=== PATIENT | male | born 1995 | race Caucasian/White ===

== ENCOUNTER 2017-04-17 16:15 | Emergency (ER) | payer BC ==
[~2017-04-17] VITALS: Ht 180.3 cm; Wt 136.0 kg
[2017-04-17] MEDS ORDERED: IBUPROFEN 800 MG TABLET PO ONE (17:00)
[2017-04-17] MEDS ORDERED: HYDROCODONE/ACETAMINOPHEN 5-325 MG TABLET PO ONE (18:30)
[2017-04-17 19:07] VITALS: BP 135/77
== END 2017-04-17 19:28 | disposition home or self-care (01) ==
LOC: EMS 16:17
DX: S82.301A Unspecified fracture of lower end of right tibia, initial encounter for closed fracture (principal); R03.0 Elevated blood-pressure reading, without diagnosis of hypertension; F17.210 Nicotine dependence, cigarettes, uncomplicated; W01.0XXA Fall on same level from slipping, tripping and stumbling without subsequent striking against object, initial encounter; Y93.89 Activity, other specified; Y92.89 Other specified places as the place of occurrence of the external cause; Y99.8 Other external cause status
CPT/HCPCS: 29515; 99284

== ENCOUNTER 2023-08-02 06:38 | Emergency (ER) | payer BC, MEDICAID ==
[~2023-08-02] VITALS: Ht 180.3 cm; Wt 136.0 kg
[2023-08-02 06:43] VITALS: TEMP 98.3
[2023-08-02] MEDS ORDERED: HYDROCODONE/ACETAMINOPHEN 5-325 MG TABLET PO ONE (08:15)
[2023-08-02] MEDS ORDERED: CYCL-448 PO (10:36)
[2023-08-02 10:41] VITALS: BP 125/87; PULSE 74; RESP 16
== END 2023-08-02 10:40 | disposition home or self-care (01) ==
LOC: EMS 06:39
DX: S13.4XXA Sprain of ligaments of cervical spine, initial encounter (principal); M54.50 Low back pain, unspecified; F17.210 Nicotine dependence, cigarettes, uncomplicated; F12.90 Cannabis use, unspecified, uncomplicated; V89.2XXA Person injured in unspecified motor-vehicle accident, traffic, initial encounter; Y93.89 Activity, other specified; Y92.481 Parking lot as the place of occurrence of the external cause; Y99.8 Other external cause status
CPT/HCPCS: 72040; 72072; 99284; Z7502; Z7610